=== PATIENT | female | born 1945 | race Caucasian/White ===

== ENCOUNTER → 2017-06-23 | Outpatient (CLI) | payer MEDICARE, BC | LOC: MC.RAD 07:04 | DX: N63.21 Unspecified lump in the left breast, upper outer quadrant (principal) ==

== ENCOUNTER → 2017-06-28 | Outpatient (CLI) | payer MEDICARE, BC ==
[~2017-06-28] MED LIST: CITRACAL + D CA1 TAB PO; HAIRSKINNAILS PO; LUTEIN20 M1 PO; MASON NATURAL500 MG PO; MEVACOR 20M20 MG/TAB PO; MULTIPLE VITAMI1 CAP PO; PRILOSEC 20MG20 MG PO; TENORMIN 2525 MG/TAB PO; TYLENOL 8 HR PO; VITAMIN D PO
== END ==
LOC: MC.RAD 09:44
DX: D05.12 Intraductal carcinoma in situ of left breast (principal)

== ENCOUNTER 2017-07-07 09:53 | Day surgery (SDC) | payer MEDICARE, BC ==
[~2017-07-07] VITALS: Ht 160 cm; Wt 76.3 kg
[2017-07-07 10:55] VITALS: BP 185/86; PULSE 55; TEMP 97.1
[2017-07-07] MEDS ORDERED: PRILOSEC 20MG20 MG PO (11:06)
[2017-07-07] MEDS ORDERED: TENORMIN 2525 MG/TAB PO (11:06)
[2017-07-07] MEDS ORDERED: MEVACOR 20M20 MG/TAB PO (11:07)
[2017-07-07] MEDS ORDERED: MULTIPLE VITAMI1 CAP PO (11:07)
[2017-07-07] MEDS ORDERED: MASON NATURAL500 MG PO (11:08)
[2017-07-07] MEDS ORDERED: CITRACAL + D CA1 TAB PO (11:10)
[2017-07-07] MEDS ORDERED: HAIRSKINNAILS PO (11:10)
[2017-07-07] MEDS ORDERED: LUTEIN20 M1 PO (11:12)
[2017-07-07] MEDS ORDERED: VITAMIN D PO (11:12)
[2017-07-07] MEDS ORDERED: TYLENOL 8 HR PO (11:13)
[2017-07-07 12:55] VITALS: BP 145/72; PULSE 51
[2017-07-07 13:10] VITALS: BP 146/74; PULSE 46
[2017-07-07 13:25] VITALS: BP 175/81; PULSE 48
[2017-07-07 13:40] VITALS: BP 181/75; PULSE 50
== END 2017-07-07 14:14 | disposition home or self-care (01) ==
LOC: SDCO 09:53
DX: D05.12 Intraductal carcinoma in situ of left breast (principal); Z68.29 Body mass index [BMI] 29.0-29.9, adult; I10 Essential (primary) hypertension; M81.0 Age-related osteoporosis without current pathological fracture; G47.30 Sleep apnea, unspecified; K21.9 Gastro-esophageal reflux disease without esophagitis; E78.00 Pure hypercholesterolemia, unspecified; M19.90 Unspecified osteoarthritis, unspecified site; G43.909 Migraine, unspecified, not intractable, without status migrainosus; Z80.1 Family history of malignant neoplasm of trachea, bronchus and lung; Z17.0 Estrogen receptor positive status [ER+]
CPT/HCPCS: J0690; J2704; J3010

== ENCOUNTER 2018-03-25 10:59 | Emergency (ER) | payer MEDICARE, BC ==
[~2018-03-25] VITALS: Ht 162.6 cm; Wt 77.3 kg
[2018-03-25 11:01] VITALS: TEMP 98.1
[2018-03-25 11:20] LABS: BASO # 0.1 (0.0-0.2); BASO % 0.8 % (0.0-2.0); EOS # 0.4 (0.0-0.7); EOS % 4.3 % (0-4.0); GRAN # 4.6 (1.4-6.5); GRAN % 54.9 % (42.2-75.2); HEMATOCRIT 44.8 % (37.0-47.0); HEMOGLOBIN 14.6 g/dl (12.5-16.0); LYMPH # 2.7 (1.2-3.4); LYMPH % 32.4 % (20.0-51.0); MEAN CELL VOLUME 91 fl (80.0-100.0); MEAN CORPUSCULAR HEMOGLOBIN 30 pg (27.0-31.0); MEAN CORPUSCULAR HGB CONC 33 g/dl (33.0-37.0); MEAN PLATELET VOLUME 11.2 fl (7.4-10.4); MONO # 0.6 (0.1-0.6); MONO % 7.2 % (1.7-9.3); PLATELET COUNT 238 K/mm3 (130-400); RED BLOOD COUNT 4.94 M/mm3 (4.10-5.30); REDCELL DISTRIBUTION WIDTH-CV 13.4 % (11.5-14.5)
[2018-03-25 11:24] LABS: INR 1.1 (0.8-3.0); PROTHROMBIN TIME 12.5 SECONDS (9.7-12.8)
[2018-03-25 11:29] LABS: ALBUMIN 4.1 gm/dL (3.5-5.0); BILIRUBIN,TOTAL 0.4 mg/dL (0.0-1.0); CALCIUM 9.5 mg/dL (8.4-10.2); CREATININE, serum 0.7 mg/dL (0.52-1.25); POTASSIUM 3.9 mmol/L (3.4-5.0); TOTAL PROTEIN 7.7 gm/dL (6.4-8.2)
[2018-03-25 11:38] LABS: PARTIAL THROMBOPLASTIN TIME 31.3 SECONDS (26.0-37.0)
[2018-03-25 11:47] LABS: TROPONIN-I 0.146 ng/mL (0.000-0.034)
[2018-03-25] MEDS ORDERED: TAMOXIFEN CITRA20 MG PO (12:05)
[2018-03-25 13:14] VITALS: BP 163/83; PULSE 55
== END 2018-03-25 13:15 | disposition short-term general hospital (02) ==
LOC: COL.ER 10:59
PROVIDERS: Family Medicine
DX: I20.0 Unstable angina (principal); I10 Essential (primary) hypertension
CPT/HCPCS: J1644

== ENCOUNTER 2018-06-13 14:59 | Outpatient (RCR) | payer MEDICARE, BC ==
[~2018-06-13 14:59] MED LIST changes: +TAMOXIFEN CITRA20 MG PO
== END 2018-06-18 13:01 | disposition home or self-care (01) ==
LOC: COL.CR 14:59
DX: I21.19 ST elevation (STEMI) myocardial infarction involving other coronary artery of inferior wall (principal); Z95.5 Presence of coronary angioplasty implant and graft

== ENCOUNTER → 2018-09-20 | Outpatient (CLI) | payer MEDICARE, BC | LOC: MC.RAD 16:04 | DX: Z12.31 Encounter for screening mammogram for malignant neoplasm of breast (principal); Z98.890 Other specified postprocedural states; Z78.0 Asymptomatic menopausal state ==

== ENCOUNTER 2018-11-30 13:31 | Emergency (ER) | payer MEDICARE, BC ==
[~2018-11-30] VITALS: Ht 157.5 cm; Wt 75.0 kg
[2018-11-30 13:37] VITALS: TEMP 97.2
[2018-11-30 13:51] LABS: BASO # 0.1 (0.0-0.2); BASO % 0.7 % (0.0-2.0); EOS # 0.3 (0.0-0.7); EOS % 2.8 % (0-4.0); GRAN # 6.2 (1.4-6.5); GRAN % 67.9 % (42.2-75.2); HEMOGLOBIN 12.8 g/dl (12.5-16.0); LYMPH # 1.9 (1.2-3.4); LYMPH % 20.4 % (20.0-51.0); MEAN CELL VOLUME 94 fl (80.0-100.0); MEAN CORPUSCULAR HEMOGLOBIN 30 pg (27.0-31.0); MEAN CORPUSCULAR HGB CONC 32 g/dl (33.0-37.0); MEAN PLATELET VOLUME 11.5 fl (7.4-10.4); MONO # 0.7 (0.1-0.6); PLATELET COUNT 232 K/mm3 (130-400); RED BLOOD COUNT 4.27 M/mm3 (4.10-5.30); REDCELL DISTRIBUTION WIDTH-CV 15.1 % (11.5-14.5)
[2018-11-30 13:55] LABS: INR 1.1 (0.8-3.0); PROTHROMBIN TIME 12.7 SECONDS (9.7-12.8)
[2018-11-30 13:58] LABS: PARTIAL THROMBOPLASTIN TIME 32.2 SECONDS (26.0-37.0)
[2018-11-30 14:01] LABS: ALANINE AMINOTRANSFERASE 34 U/L (9-52); ALKALINE PHOSPHATASE 59 U/L (50-136); ANION GAP 12 mmol/L (7-16); AST,SGOT 49 U/L (15-37); BILIRUBIN,TOTAL 0.8 mg/dL (0.0-1.0); BLOOD UREA NITROGEN 12 mg/dL (7-17); CALCIUM 9.6 mg/dL (8.4-10.2); CARBON DIOXIDE 26 mmol/L (22-30); CHLORIDE 105 mmol/L (98-107); CREATININE, serum 1.07 (0.52-1.25); GLUCOSE 100 mg/dL (74-106); SODIUM 142 mmol/L (137-145); TOTAL PROTEIN 7.6 gm/dL (6.4-8.2)
[2018-11-30 14:36] LABS: TROPONIN-I < 0.012 ng/mL (0.000-0.035)
[2018-11-30 20:08] VITALS: BP 148/76; PULSE 50
== END 2018-11-30 20:08 | disposition short-term general hospital (02) ==
LOC: COL.ER 13:31
PROVIDERS: Family Medicine
DX: R07.89 Other chest pain (principal)
CPT/HCPCS: J1644

== ENCOUNTER → 2019-10-29 | Outpatient (CLI) | payer MEDICARE, BC | LOC: MC.RAD 09-24 10:30 | DX: Z12.31 Encounter for screening mammogram for malignant neoplasm of breast (principal) ==

== ENCOUNTER → 2020-10-29 | Outpatient (CLI) | payer MEDICARE, BC | LOC: MC.RAD 10:44 | DX: Z12.31 Encounter for screening mammogram for malignant neoplasm of breast (principal); Z98.82 Breast implant status; Z90.12 Acquired absence of left breast and nipple ==

== ENCOUNTER 2021-07-02 12:16 | Observation (INO) | payer MEDICARE, BC ==
[~2021-07-02] VITALS: Ht 162.6 cm; Wt 75.5 kg
[2021-07-02 12:56] LABS: COLLECTION METHOD CATHETER
[2021-07-02 13:01] LABS: BASO % 0.3 % (0.0-2.0); EOS # 0.1 K/mm3 (0.0-0.7); GRAN # 5.3 K/mm3 (1.4-6.5); GRAN % 74.8 % (42.2-75.2); HEMATOCRIT 44.8 % (37.0-47.0); HEMOGLOBIN 14.7 g/dl (12.5-16.0); LYMPH # 1.2 K/mm3 (1.2-3.4); LYMPH % 16.9 % (20.0-51.0); MEAN CELL VOLUME 90 fl (80.0-100.0); MEAN CORPUSCULAR HEMOGLOBIN 30 pg (27-31); MEAN CORPUSCULAR HGB CONC 33 g/dl (33.0-37.0); MEAN PLATELET VOLUME 11.6 fl (7.4-10.4); MONO # 0.5 K/mm3 (0.1-0.6); MONO % 6.9 % (1.7-9.3); PLATELET COUNT 176 K/mm3 (130-400); RED BLOOD COUNT 4.98 M/mm3 (4.10-5.30); REDCELL DISTRIBUTION WIDTH-CV 13.8 % (11.5-14.5)
[2021-07-02 13:04] LABS: MUCOUS Present (NOT PRESENT); PH 5 (5-8); SQUAMOUS EPITHELIAL 0-2 /hpf (0-10); URINE APPEARANCE Hazy (CLEAR/HAZY); URINE BACTERIA None Seen /hpf (NONE SEEN); URINE BILIRUBIN Negative (NEGATIVE); URINE BLOOD Negative (NEGATIVE); URINE COLOR Yellow (YELLOW); URINE GLUCOSE Negative (NEGATIVE); URINE KETONE Negative (NEGATIVE); URINE LEUKOCYTE ESTERASE Negative (NEGATIVE); URINE NITRATE Negative (NEGATIVE); URINE PROTEIN(semi-quant) Negative (NEGATIVE); URINE RBC 0-2 /hpf (0-2); URINE UROBILINOGEN Negative (NEGATIVE)
[2021-07-02 13:27] LABS: ALBUMIN 3.8 gm/dL (3.4-4.8); BILIRUBIN,TOTAL 0.5 mg/dL (0.2-1.2); CALCIUM 9.4 mg/dL (8.4-10.2); CREATININE, serum 0.98 mg/dL (0.57-1.11); POTASSIUM 3.5 mmol/L (3.5-4.5); TOTAL PROTEIN 7.8 gm/dL (6.2-8.1)
[2021-07-02 17:05] VITALS: BP 150/136; PULSE 70; TEMP 99.4
[2021-07-02] MEDS ORDERED: LOTEMAX 5 ML 5 M5 ML OS (17:47)
[2021-07-02] MEDS ORDERED: COZAAR 50MG50 MG/TAB PO ×2 (17:51)
[2021-07-02] MEDS ORDERED: ELIQUIS 5MG PO (17:52)
[2021-07-02] MEDS ORDERED: ASPIRIN 81M81 MG/TA2 PO (17:53)
[2021-07-02] MEDS ORDERED: FLEXERIL 1010 MG/TAB PO (17:53)
[2021-07-02 20:11] VITALS: BP 145/80; PULSE 62; TEMP 97.8
--- NOTE | 2021-07-02 22:26 | NUR ---
Patient assessed around 2004. Alert and oriented, and able to make needs known. Denies pain and discomfort. Reports feeling better, but still tired. On oxygen at 1 L/min via NC. Voices no questions, needs, or concerns at this time. In bed with call light within reach. Bed alarm on.
[2021-07-03] VITALS (7 sets, daily range): BP systolic 110–151; BP diastolic 55–73; PULSE 53–66; TEMP 97.5–99.7
--- NOTE | 2021-07-03 05:13 | NUR ---
Continues on oxygen at 1 L/min via NC. Denies pain and discomfort. Voices no questions, needs, or concerns at this time. In bed with call light within reach.
--- NOTE | 2021-07-03 07:30 | NUR ---
Report received from ANDRES Coronado. Will resume care.
[2021-07-03 09:06] LABS: GRAN % 78.5 % (42.2-75.2); HEMATOCRIT 41.3 % (37.0-47.0); HEMOGLOBIN 13.3 g/dl (12.5-16.0); LYMPH # 0.8 K/mm3 (1.2-3.4); MEAN CELL VOLUME 90 fl (80.0-100.0); MEAN CORPUSCULAR HEMOGLOBIN 29 pg (27-31); MEAN CORPUSCULAR HGB CONC 32 g/dl (33.0-37.0); MEAN PLATELET VOLUME 11.8 fl (7.4-10.4); MONO # 0.3 K/mm3 (0.1-0.6); MONO % 6.1 % (1.7-9.3); PLATELET COUNT 170 K/mm3 (130-400); RED BLOOD COUNT 4.59 M/mm3 (4.10-5.30); REDCELL DISTRIBUTION WIDTH-CV 13.7 % (11.5-14.5)
[2021-07-03 09:11] LABS: INR 1.7 (0.8-3.0); PROTHROMBIN TIME 18.7 SECONDS (9.7-12.8)
[2021-07-03 09:31] LABS: C-REACTIVE PROTEIN 1.29 mg/dL (0.00-0.50); MAGNESIUM 1.9 mg/dL (1.6-2.6)
[2021-07-03 09:38] LABS: D-DIMER < 200.00 ng/mLDDu (200-230)
--- NOTE | 2021-07-03 10:54 | NUR ---
Assessment charted. Pt resting in bed, states she feels much better since arriving to the hospital, was previously not doing as well at home and feeling much improved, able to sit up and eat breakfast independently and she states this is a real improvement for her. INT to LA/C. Denies npain, will continue to monitor.
--- NOTE | 2021-07-03 11:18 | NUR ---
JON completed intake with patient. Patient states that she lives in [facility] alone. She states that her point of contact and DPOA-HC is her daughter Keisha Mesa [phone]. Patient provides that she does not utilize any DME, is independent with ADL's and does not utilize any outside services for care. Patient states that her PCP is Dr. Rowell and pharmacy is [facility]. Patient states that her plan is to return to her home in [place] upon DC and has no concerns with doing so. SW will continue to follow. DC plan: Home
--- NOTE | 2021-07-03 12:58 | NUR ---
Chaplain hendrixyeadilson and offered support with patient in doorway.
--- NOTE | 2021-07-03 18:31 | NUR ---
Pt h as done well over shift, denies pain, tired and napped this afternoon after showering. Will give report to nightshift nurse who will resume care.
--- NOTE | 2021-07-03 20:47 | NUR ---
Patient assessed around 1930. Alert and oriented x 4, and able to make needs known. Denies having pain and discomfort at this time. Peripheral INT to left AC. Denies SOB and dyspnea. LS CTA in upper lobes, fine crackles in lower. Occasional moist cough. On oxygen at 1 L/min via NC. HRR. Telemetry in place. Capillary refill less than 3 seconds. Non-tenting skin turgor. BSAx4. Abdomen soft and non-tender. No edema. Patient reports feeling like her strength is starting to come back. Has been ambulating to bathroom with one assist. Voices no questions, needs, or concerns at this time. In bed with call light within reach.
[2021-07-04 03:20] VITALS: BP 140/71; PULSE 57; TEMP 97.4
--- NOTE | 2021-07-04 05:48 | NUR ---
Patient has been resting in bed. Has denied pain and discomfort this shift. Denies SOB and dyspnea. On oxygen at 1 L/min via NC. Has been ambulating to bathroom, oxygen saturation 90% on 1 L of oxygen after ambulating to and from bathroom. Gait steady. Reports feeling much stronger this morning. Voices no questions, needs, or concerns at this time. In bed with call light within reach.
[2021-07-04 06:44] LABS: BASO % 0.1 % (0.0-2.0); EOS % 0.1 % (0.0-4.0); GRAN # 9.7 K/mm3 (1.4-6.5); GRAN % 81.8 % (42.2-75.2); HEMATOCRIT 42.1 % (37.0-47.0); HEMOGLOBIN 13.4 g/dl (12.5-16.0); LYMPH # 1.4 K/mm3 (1.2-3.4); LYMPH % 11.5 % (20.0-51.0); MEAN CELL VOLUME 92 fl (80.0-100.0); MEAN CORPUSCULAR HEMOGLOBIN 29 pg (27-31); MEAN CORPUSCULAR HGB CONC 32 g/dl (33.0-37.0); MEAN PLATELET VOLUME 11.8 fl (7.4-10.4); MONO # 0.7 K/mm3 (0.1-0.6); MONO % 6.1 % (1.7-9.3); PLATELET COUNT 181 K/mm3 (130-400); RED BLOOD COUNT 4.58 M/mm3 (4.10-5.30); REDCELL DISTRIBUTION WIDTH-CV 13.7 % (11.5-14.5)
[2021-07-04 19:05] VITALS: BP 140/68; PULSE 71; TEMP 99
[2021-07-04 23:04] VITALS: BP 159/70; PULSE 74; TEMP 98.8
--- NOTE | 2021-07-04 23:34 | NUR ---
FROM TELE - NOTIFIED RN OF PT'S SUSTAINED BRADYCARDIA [id number].
--- NOTE | 2021-07-05 01:40 | NUR ---
TELE SENIOR [employer]UTIONS ENGINEER INFORMED THIS NURSE OF PT SUSTAINED BRADYCARD [id number]. PT ASYMPTOMATIC, SYSTOLIC HYPERTENSIVE, 02 1L NC, PT DENIES SOA, PALPTATIONS, CHEST PAIN, DIZZINESS. EKG ORDERED BY HOSPITALIST. RT TECH NOTIFIED. PT DOES REPORT HISTORY OF BRADYCARDIA. THIS NURSE WILL CONTINUE TO MONITOR.
[2021-07-05 04:07] VITALS: BP 156/86; PULSE 65; TEMP 97.9
--- NOTE | 2021-07-05 05:26 | NUR ---
ALL NEEDS MET THIS SHIFT, NO INTERVENTIONS THIS SHIFT FOR BRADYCARDIA, HOSPITALIST FOLLOWING, PT REMAINS ON 1L 02, DENIES N,V,D, CONSTIPATION. CALL LIGHT WITHIN REACH.
[2021-07-05 06:28] LABS: BASO % 0.1 % (0.0-2.0); GRAN # 9.1 K/mm3 (1.4-6.5); GRAN % 77.3 % (42.2-75.2); HEMATOCRIT 39.2 % (37.0-47.0); HEMOGLOBIN 12.8 g/dl (12.5-16.0); LYMPH # 1.8 K/mm3 (1.2-3.4); LYMPH % 14.9 % (20.0-51.0); MEAN CELL VOLUME 91 fl (80.0-100.0); MEAN CORPUSCULAR HEMOGLOBIN 30 pg (27-31); MEAN CORPUSCULAR HGB CONC 33 g/dl (33.0-37.0); MEAN PLATELET VOLUME 11.4 fl (7.4-10.4); MONO # 0.8 K/mm3 (0.1-0.6); MONO % 6.9 % (1.7-9.3); PLATELET COUNT 212 K/mm3 (130-400); RED BLOOD COUNT 4.31 M/mm3 (4.10-5.30); REDCELL DISTRIBUTION WIDTH-CV 13.6 % (11.5-14.5)
[2021-07-05 08:01] VITALS: BP 167/63; PULSE 51; TEMP 98
[2021-07-05] MEDS ORDERED: RT Albuterol HFA MDI IH (09:07)
[2021-07-05] MEDS ORDERED: PROAIR HFA0.09 MG/AC IH (09:07)
[2021-07-05] MEDS ORDERED: DECADRON6 MG PO (09:08)
--- NOTE | 2021-07-05 12:17 | NUR ---
PT LAYING SUPINE IN BED. STATES THAT SHE "FEELS GOOD AND IS READY TO EAT BREAKFAST AND GO HOME." PT STATES THAT SHE IS NOT HAVING ANY PAIN AT THIS TIME. PT STATES THAT SHE DOES NOT NEED ANYTHING AT THIS TIME. CALL LIGHT IS WITHIN REACH.
== END 2021-07-05 11:16 | disposition home or self-care (01) ==
LOC: COL.ER 12:16 → MEDICAL 16:18
PROVIDERS: Personal Emergency Response Attendant
DX: U07.1 COVID-19 (principal); J96.01 Acute respiratory failure with hypoxia; I10 Essential (primary) hypertension; E78.5 Hyperlipidemia, unspecified; D05.92 Unspecified type of carcinoma in situ of left breast; I25.2 Old myocardial infarction; Z95.5 Presence of coronary angioplasty implant and graft; Z79.899 Other long term (current) drug therapy; Z79.810 Long term (current) use of selective estrogen receptor modulators (SERMs)
CPT/HCPCS: 99232-AI; J0696; J1100; J2270; J2405; J7030; J8540

== ENCOUNTER → 2022-01-10 | Outpatient (CLI) | payer MEDICARE, BC ==
[~2022-01-10] MED LIST changes: +ASPIRIN 81M81 MG/TA2 PO; +COZAAR 50MG50 MG/TAB PO; +DECADRON6 MG PO; +ELIQUIS 5MG PO; +FLEXERIL 1010 MG/TAB PO; +LOTEMAX 5 ML 5 M5 ML OS; +PROAIR HFA0.09 MG/AC IH; +RT Albuterol HFA MDI IH
== END ==
LOC: MC.RAD 11:15
DX: Z12.31 Encounter for screening mammogram for malignant neoplasm of breast (principal)

== ENCOUNTER 2023-07-11 21:11 | Observation (INO) | payer MEDICARE, BC ==
[~2023-07-11] VITALS: Ht 157.5 cm; Wt 76.9 kg
[2023-07-11 21:46] LABS: BASO # 0.1 K/mm3 (0.0-0.2); BASO % 0.7 % (0.0-2.0); EOS # 0.4 K/mm3 (0.0-0.7); EOS % 4.2 % (0.0-4.0); GRAN # 4.1 K/mm3 (1.4-6.5); HEMATOCRIT 46.2 % (37.0-47.0); HEMOGLOBIN 15.2 g/dl (12.5-16.0); LYMPH # 4.3 K/mm3 (1.2-3.4); LYMPH % 44.5 % (20.0-51.0); MEAN CELL VOLUME 91 fl (80.0-100.0); MEAN CORPUSCULAR HEMOGLOBIN 30 pg (27-31); MEAN CORPUSCULAR HGB CONC 33 g/dl (33.0-37.0); MEAN PLATELET VOLUME 11.1 fl (7.4-10.4); MONO # 0.8 K/mm3 (0.1-0.6); MONO % 8.3 % (1.7-9.3); PLATELET COUNT 254 K/mm3 (130-400); RED BLOOD COUNT 5.09 M/mm3 (4.10-5.30); REDCELL DISTRIBUTION WIDTH-CV 14.2 % (11.5-14.5)
[2023-07-11 22:08] LABS: ALBUMIN 3.8 gm/dL (3.4-4.8); BILIRUBIN,TOTAL 0.5 mg/dL (0.2-1.2); CALCIUM 10.3 mg/dL (8.4-10.2); CREATININE, serum 0.87 mg/dL (0.57-1.11); POTASSIUM 3.4 mmol/L (3.5-4.5)
[2023-07-11 22:19] LABS: INR 1.2 (0.8-3.0); PROTHROMBIN TIME 13.1 SECONDS (9.7-12.8)
[2023-07-11 22:28] LABS: TROPONIN-I 0.011 ng/mL (0.00-0.033); TSH w REFLEX 10.182 uIU/mL (0.350-4.940)
[2023-07-11 22:31] LABS: D-DIMER < 200.00 ng/mLDDu (200-230)
[2023-07-12] VITALS (11 sets, daily range): BP systolic 128–150; BP diastolic 72–82; PULSE 57–63; TEMP 97.7–99
[2023-07-12] MEDS ORDERED: COZAAR 25MG25 MG/TAB PO (01:00)
[2023-07-12] MEDS ORDERED: LORazepam 2 MG/ML 1 ML VIAL IV ONE (01:00)
[2023-07-12] MEDS ORDERED: NORVASC 5MG5 MG/TAB PO (02:00)
[2023-07-12] MEDS ORDERED: LIPITOR 80MG80 MG PO (02:01)
[2023-07-12] MEDS ORDERED: TOPROL XL 25MG25 MG PO (02:01)
[2023-07-12] MEDS ORDERED: VITAMIN D31000 I1 PO (02:01)
[2023-07-12] MEDS ORDERED: Cholecalciferol (Vit D3) 1000 Units TAB PO SCH (02:02)
[2023-07-12] MEDS ORDERED: CALCIUM 600MG+D1 TAB PO (02:02)
[2023-07-12] MEDS ORDERED: *Potassium Replacement Protocol MC SCH (02:45)
[2023-07-12] MEDS ORDERED: Acetaminophen 325 MG TAB PO PRN (02:45)
[2023-07-12] MEDS ORDERED: Potassium Bicarbonate/Citrate 20 MEQ Effervescent TAB PO SCH (02:45)
--- NOTE | 2023-07-12 04:03 | NUR ---
patient arrived from ED around 0245, alert and oriented x4. pt denies chest pain and shortness of breath.pt ambulating with steady gait, no remarkable skin findings noted, general small scattered bruising on extremities noted. slight nonpitting edema in BLE. IV in LAC is patent, site is clean dry and intact. pt has no further needs, questions or concerns at this time. call light within reach, will continue to monitor.
[2023-07-12 07:07] LABS: BASO # 0.1 K/mm3 (0.0-0.2); BASO % 0.9 % (0.0-2.0); EOS # 0.5 K/mm3 (0.0-0.7); EOS % 4.8 % (0.0-4.0); GRAN # 4.8 K/mm3 (1.4-6.5); GRAN % 48.5 % (42.2-75.2); HEMATOCRIT 41.1 % (37.0-47.0); HEMOGLOBIN 13.7 g/dl (12.5-16.0); LYMPH # 3.7 K/mm3 (1.2-3.4); LYMPH % 37.7 % (20.0-51.0); MEAN CELL VOLUME 90 fl (80.0-100.0); MEAN CORPUSCULAR HEMOGLOBIN 30 pg (27-31); MEAN CORPUSCULAR HGB CONC 33 g/dl (33.0-37.0); MEAN PLATELET VOLUME 11.8 fl (7.4-10.4); MONO # 0.8 K/mm3 (0.1-0.6); MONO % 7.8 % (1.7-9.3); PLATELET COUNT 252 K/mm3 (130-400); RED BLOOD COUNT 4.59 M/mm3 (4.10-5.30); REDCELL DISTRIBUTION WIDTH-CV 14.4 % (11.5-14.5)
[2023-07-12 07:08] LABS: CALCIUM 9.5 mg/dL (8.4-10.2); CREATININE, serum 0.81 mg/dL (0.57-1.11); POTASSIUM 4.7 mmol/L (3.5-4.5)
[2023-07-12] MEDS ORDERED: Multivitamin TAB PO SCH (09:00)
[2023-07-12] MEDS ORDERED: Calcium Carb/Vit D3 500 mg-200 Units TAB PO SCH (09:00)
[2023-07-12] MEDS ORDERED: Losartan 50 MG TAB PO SCH (09:00)
--- NOTE | 2023-07-12 11:00 | NUR ---
I am taking over this patients care at this time. report received from CharlineRN, patient denied needs at this time, SR on tele, hospitalist round on her now, we discussed medication changes with he and plan of care, stress test 07/13
--- NOTE | 2023-07-12 13:08 | NUR ---
key worker and Student, Maria Del Rosario, met with patient and her daughter, Kirsten, P# [phone] to discuss discharge planning. Patient lives alone in [place] but her daughter is her neighbor. PCP is Dr. Rowell, [facility] in [place]. Only medication that is expensive is Eliquis but she uses [facility]. DPOA-HC is Kirsten. No DME and reports to be independent with ADLS> Patient is able to transport herself to appointments or Kirsten will take her. Patient has no concerns and would like to return home at time of discharge. Discharge plan: Home
--- NOTE | 2023-07-12 14:06 | NUR ---
Initial visit; Patient thanked [employer] for looking in on him and introduced her to his daughter. Litigator had visited him so he was fine and didn't really need Spiritual Care at this time. [employer] wished him well and offered God's blessings.
[2023-07-12] MEDS ORDERED: amLODIPine 5 MG TAB PO SCH (17:00)
[2023-07-12] MEDS ORDERED: Apixaban 5 MG TAB PO SCH (21:00)
--- NOTE | 2023-07-12 21:49 | NUR ---
PT IN BED, INDEPENDENT IN ROOM. HS MEDS GIVEN. WILL BE NPO AT MIDNIGHT, PT AWARE. HAS INT TO LAC, FLUSHES WELL. DENIES PAIN AT THIS TIME. TELEMETRY SHOWS SR.
[2023-07-13] VITALS (10 sets, daily range): BP systolic 128–147; BP diastolic 75–83; PULSE 53–81; TEMP 9
--- NOTE | 2023-07-13 08:16 | NUR ---
RECEIVED BEDSIDE REPORT FROM NIGHTSHIFT RNALBINA. PATIENT RESTING IN BED AT THIS TIME. BED IN A LOW POSITION. CALL LIGHT WITHIN REACH.
--- NOTE | 2023-07-13 08:19 | NUR ---
HEAD TO TOE ASSESSMENT COMPLETED. PATIENT IS ALERT AND ORIENTED. PATIENT REMAINS NPO AT THIS TIME FOR LEXISCAN SOMETIME TODAY. PUPILS ARE EQUAL AND REACTIVE. HEART SOUNDS REGULAR WITH S1 AND S2. LUNG SOUNDS CLEAR BILATERALY IN UPPER AND LOWER LOBES. BOWEL SOUNDS ACTIVE X4. PULSES PRESENT AND EQUAL BILATERALLY IN UPPER AND LOWER EXTREMITIES. PATIENT IS INDEPENDENT IN ROOM AND BATHROOM. MEDICATIONS ADMINISTERED PER EMAR WITH SMALL SIPS OF WATER. PATIENT HAS NO COMPLAINTS OF PAIN THIS MORNING. BED IN A LOW POSITION. CALL LIGHT WITHIN REACH.
--- NOTE | 2023-07-13 10:47 | NUR ---
PATIENT LEAVING FLOOR AT 1047 FOR LEXISCAN. PATIENT ACCOMPANIED BY NUCLEAR MEDICINE STAFF.
[2023-07-13] MEDS ORDERED: Regadenoson 0.08 MG/ML 5 ML SYRINGE IV SCH (11:20)
[2023-07-13] MEDS ORDERED: ELIQUIS 5MG PO (13:19)
[2023-07-13] MEDS ORDERED: LEVOXYL0.025 MG PO (13:20)
[2023-07-13] MEDS ORDERED: PROTONIX 40MG T40 MG PO (14:56)
== END 2023-07-13 15:00 | disposition home or self-care (01) ==
LOC: COL.ER 21:11 → SURG 07-12 01:24
PROVIDERS: Emergency Medicine; Nurse Practitioner Family; ADMIT Internal Medicine
DX: I48.0 Paroxysmal atrial fibrillation (principal); I25.10 Atherosclerotic heart disease of native coronary artery without angina pectoris; I25.2 Old myocardial infarction; Z95.5 Presence of coronary angioplasty implant and graft; I10 Essential (primary) hypertension; E78.5 Hyperlipidemia, unspecified; E87.6 Hypokalemia; E83.52 Hypercalcemia; D05.12 Intraductal carcinoma in situ of left breast; E03.8 Other specified hypothyroidism; G47.30 Sleep apnea, unspecified; Z99.89 Dependence on other enabling machines and devices; Z79.899 Other long term (current) drug therapy; Z79.82 Long term (current) use of aspirin
CPT/HCPCS: A9500-JZ; G0378; J1650; J2785

== ENCOUNTER → 2024-01-18 | Outpatient (CLI) | payer MEDICARE, BC ==
[~2024-01-18] MED LIST changes: +CALCIUM 600MG+D1 TAB PO; +COZAAR 25MG25 MG/TAB PO; +LEVOXYL0.025 MG PO; +LIPITOR 80MG80 MG PO; +NORVASC 5MG5 MG/TAB PO; +PROTONIX 40MG T40 MG PO; +TOPROL XL 25MG25 MG PO; +VITAMIN D31000 I1 PO
== END ==
LOC: MC.RAD 13:30
DX: Z12.31 Encounter for screening mammogram for malignant neoplasm of breast (principal)